=== PATIENT | male | born 1960 | race African-American/Black ===

== ENCOUNTER 2020-10-14 08:40 | Outpatient (CLI) | payer OTHER, SELFPAY ==
--- NOTE | ~2020-10-14 | CT_ITS ---
EXAMINATION: CT abdomen pelvis wo/w con EXAM DATE: 10/14/2020 09:54 INDICATION: Renal mass. TECHNIQUE: Spiral CT of the abdomen without contrast followed by both abdomen and pelvis with 100 cc intravenous Omnipaque 350. Axial, coronal and sagittal images of the abdomen and pelvis were reviewe d. The dose-length product (DLP) for this examination was 2451.48 mGy-cm. The exposure was tailored according to patient size (auto mA exposure control), and iterative reconstruction (ASIR) was used a s additional dose reduction technique. There is no prior study for comparison. FINDINGS: No nephrolithiasis. There are 2 right renal lesions, largest in the midpole lateral cortex measuring up to 2.6 cm, central portion mildly proteinaceous fluid density and does not appear to enh ance; this could be a cyst but cystic renal cell cancer not excludable. The other is in the lower mary e posterior cortex measuring 1.4 cm, appearance most consistent with a hemorrhagic cyst. Scattered s mall liver cysts. Gallbladder is unremarkable. No biliary obstruction. The prostate is unremarkab le. The bladder is unremarkable. There is no retroperitoneal or pelvic lymphadenopathy. There is mild to moderate scattered arteriosclerotic disease. Small umbilical fat-containing hernia. The appendix is not positively visualized. There is no pericecal inflammatory change to suggest appe ndicitis. There is mild scattered colonic diverticulosis. There is no adjacent inflammatory change t o suggest diverticulitis. The stomach and small bowel are unremarkable. There is expected amount of colonic stool. No free intraperitoneal gas. The heart is normal in size. There are no pericardia l or pleural effusions. Mild emphysema. There are no osteoblastic or osteolytic lesions identified. IMPRESSION: 1. Right renal lesion, could be cyst but cystic renal cell cancer not excludable. 2. Mild colonic diverticulosis. 3. Mild emphysema. 4. Small umbilical hernia. Further management options include correlating with prior imaging which demonstrated a mass, obtainin g a renal MRI examination, obtaining a six-month follow-up CT, an/or consult. Reviewed, dictated and finalized at location A. IMPRESSION: 1. Right renal lesion, could be cyst but cystic renal cell cancer not excludab le. 2. Mild colonic diverticulosis. 3. Mild emphysema. 4. Small umbilical hernia. Further management options include correlating with prior imaging which demonst rated a mass, obtaining a renal MRI examination, obtaining a six-month follow-u p CT, an/or consult.
[2020-10-14 09:39] LABS: Estimated Glomerular Filt Rate > 60
== END 2020-10-14 08:41 | disposition home or self-care (01) ==
PROVIDERS: PCP Internal Medicine; Visit Provider Urology
DX: N28.89 Other specified disorders of kidney and ureter (principal); K42.9 Umbilical hernia without obstruction or gangrene; K57.30 Diverticulosis of large intestine without perforation or abscess without bleeding
CPT/HCPCS: 74178; Q9967

== ENCOUNTER 2020-11-11 07:46 | Outpatient (CLI) | payer OTHER, SELFPAY ==
--- NOTE | ~2020-11-11 | MR_ITS ---
EXAMINATION: MR abdomen wo/w con DATE: 11/11/2020 08:59 INDICATION: Kidney lesion TECHNIQUE: Magnetic resonance imaging (MRI) of the abdomen was performed without and with 20 mL Multi ebenezer intravenous contrast. Sequences included coronal T2-weighted SS-FSE, coronal and axial FS 2D-F IESTA, axial STIR FSE, axial T2-weighted SS-FSE, axial T2-weighted FS SS-FSE, axial diffusion-weighte d SE, axial dual-echo T1-weighted FSPGR, and axial and coronal T1-weighted LAVA. Postcontrast axial T 1-weighted LAVA images were obtained in a time course. Postcontrast coronal T1-weighted LAVA images w ere obtained. COMPARISON: CT dated 10/24/2020 FINDINGS: Heart size is normal. No pericardial or pleural effusion. There are few T2 hyperintense nonenhancing hepatic cysts including a cluster of 3 along the ligamentum teres. Gallbladder, spleen, pancreas and bilateral adrenal glands are normal. T2 isointense, T1 hyperintense nonenhancing proteinaceous/hemorr hagic cysts measuring 12 mm at an exophytic lesion at the lower pole of the right kidney and 7 mm les ion at the lower pole of the left kidney. A single 4 mm T2 hyperintense nonenhancing cyst at the lowe r pole of the left kidney. There is a T1 and T2 hyperintense complex cystic mass at the lower pole of the right kidney which is almost entirely without enhancement however there is a thin internal septa tion as well as a small nodular region of peripheral mural based nodular enhancement measuring up to 4 mm in thickness and with acute margins along the posterior wall of the lesion which would render th is a Bosniak IV cystic mass suspicious for malignancy. Visualized portion of the bowels are unremarka ble. No pathologically enlarged abdominal lymphadenopathy. Mild lumbar spondylosis. Normal bone marro w signal throughout. IMPRESSION: 1. 2.5 cm Bosniak IV cystic mass with small region of peripheral nodular enhancement concerning for m alignancy. Recommend urologic consultation. Reviewed, dictated and finalized at location B. IMPRESSION: 1. 2.5 cm Bosniak IV cystic mass with small region of peripheral nodular enhanc ement concerning for malignancy. Recommend urologic consultation.
== END 2020-11-11 07:47 | disposition home or self-care (01) ==
LOC: ANHIMG 07:50
PROVIDERS: PCP Internal Medicine; Visit Provider Urology
DX: N28.9 Disorder of kidney and ureter, unspecified (principal)
CPT/HCPCS: 74183; A9577

== ENCOUNTER 2021-03-18 12:35 | Outpatient (CLI) | payer OTHER, SELFPAY ==
--- NOTE | ~2021-03-18 | CT_ITS ---
EXAMINATION: CT abdomen wo/w con DATE: 03/18/2021 13:12 INDICATION: Kidney mass. TECHNIQUE: Computed tomography (CT) of the abdomen was performed without and with 100 mL Omnipaque 35 0 intravenous contrast. Automated exposure control and iterative reconstruction technique were employ ed. The dose-length product was 2001.93 mGy-cm. COMPARISON: CT abdomen and pelvis 10/14/2020, abdomen MRI 11/11/20 FINDINGS: The visualized portions of the lung bases demonstrate mild atelectasis. There is mild emphy sema. No pleural effusion. The heart size is normal. There are coronary artery calcifications. No per icardial effusion. There are cysts in the liver measuring up to 12 mm. The gallbladder, spleen, pancr eas, adrenal glands are normal. There is a 1.5 cm hemorrhagic cyst in right kidney. There is a 2.4 cm hyperdense cystic mass in right kidney with irregularly thickened enhancing wall. There is a [address] in left kidney. There are no dilated loops of bowel. There are no pathologically enlarged lymph no mary lou. There is no free intraperitoneal fluid. There is mild thoracolumbar spondylosis. IMPRESSION: 1. 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 Reviewed, dictated and finalized at location E. [employer]
[2021-03-18 13:06] LABS: Estimated Glomerular Filt Rate > 60
== END 2021-03-18 12:36 | disposition home or self-care (01) ==
LOC: ANHIMG 12:41
PROVIDERS: PCP Internal Medicine; Visit Provider Urology
DX: N28.89 Other specified disorders of kidney and ureter (principal)
CPT/HCPCS: 74170; Q9967